=== PATIENT | female | born 1980 ===

== ENCOUNTER 2024-09-20 14:07 | Outpatient (AMB) | payer OTHER, SELFPAY ==
--- NOTE | 2024-09-20 14:14 | MHC.PC.OV ---
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 Intake Note: New patient visit Trial Attorney Required: No Allergies No Known Allergies Allergy (Verified 09/20/24 14:15) Medication List - Last Reconciled 09/20/24 by Vanesa Magallanes PA-C No Known Home Meds Tobacco use date assessed: 09/20/24 Dental Screening Dental Screen Date: 09/20/24 Did you have a dental visit in the last 12 months?: Yes Did you have a dental problem in the last 6 months where you did not have access to dental care?: No Was dental information given to patient?: Patient declined (sees on in [place]) HPI 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 She is transferring from [place]. Has a hx SARI Trial Attorney: Josefa [phone] --patient does speak and understand most [place]ib[place]ian. 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 States that she recently had a review and was told that she does have some concentration issues. She tells me today that she does not really have depression or anxiety but wonders if she has underlying ADD. She is wondering about seeing a psychiatrist and treating this. She does complain today of fatigue for the last couple of months. She is not sure if it is related to her difficulty concentrating or her history of iron-deficiency anemia. Not on any supplements. She has also been experiencing bilateral carpal tunnel syndrome for the last couple years. She has been wearing splints at night but recently it seems like the splints are not as effective. She is waking up with numbness and tingling and pain in her hands. She does endorse low back pain that is been on and off for years. It is more chronic now. There was no trauma. No radiation down the legs. Mill Dresser: UTD, follows in [place] Mammo: Had this ordered by her camera repairer. Family hx: Maternal grandmother breast ca, 2 maternal aunts have breast cancer. Paternal aunt age 47 colon cancer, paternal uncle has thyroid and prostate ca [facility] Surgical History (Updated 09/20/24 @ 14:26 by Kathrine Yan CMA) H/O breast augmentation Family History (Updated 09/20/24 @ 14:24 by Kathrine Yan CMA) Mother Bipolar 1 disorder Diabetes Arthritis Paternal Aunt Colon cancer high risk Maternal Grandmother Breast cancer Paternal Grandmother Breast cancer Father Arthritis Social History Housing: House Patient Tobacco Use Status: Never used Tobacco e-Cigarette/Vaping Use: Never Used Second Hand Smoke Exposure: No service: No Current occupational status: employed 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 1. Little interest or pleasure in doing things: several days 2. Feeling down, depressed, or hopeless: not at all 3. Trouble falling or staying asleep, or sleeping too much: several days 4. Feeling tired or having little energy: several days 5. Poor appetite or overeating: not at all 6. Feeling bad about yourself - or that you are a failure or have let yourself or your family down: not at all 7. Trouble concentrating on things, such as reading the newspaper or watching television: more than half the days 8. Moving or speaking so slowly that other people could have noticed. Or the opposite - being so fidgety or restless that you have been moving around a lot more than usual: not at all 9. Thoughts that you would be better off or of hurting yourself in some way: not at all Total score: 5 Depression Screening Interpretation: Positive Depression Screening Follow-up: Existing condition, New Medication prescribed, Community Mental Health Worker F/U and Follow-up Visit Requested Depression Screening Done: Yes 43859 - PHQ-9 Billing: Yes Source: Developed by Drs. Mitchel Arana, Nusrat San, Nemesio Long and colleagues, with an educational herminia from [employer]. Thrive Questionnaire Date Thrive assessed: 08/21/24 I am a: Patient What is your living situation today?: I have a steady place to live Within the past 12 months, did the food you bought not last and you didn't have the money to get more?: Never true Within the past 12 months, did you worry whether your food would run out before you got money to buy more?: Never true Do you have trouble paying for medicines?: No Do you have trouble getting transportation to medical appointments?: No Do you have trouble paying your heating and electricity bill?: I choose not to answer this question Do you have trouble taking care of your child, family member or friend?: No Do you have trouble with day-to-day activities such as bathing, preparing meals, shopping, managing finances, etc.?: No Are you currently unemployed and looking for a job?: No Are you interested in more education?: I choose not to answer this question Please select the resources that you would like help with: None Currently or been in a relationship where the following occur: No concerns reported THRIVE Score: 0 AUDIT C Alcohol Use Questionnaire (AUDIT-C) 2. How many drinks containing alcohol do you have on a typical day when you are drinking?: 1 or 2 Total Score: 0 Score Reviewed/Action Taken: Yes SHANNON-7 AMB Questionnaire SHANNON-7 Feeling nervous, anxious, or on edge: 1 = Several days Not being able to stop or control worryin = Several days Worrying too much about different things: 1 = Several days Trouble relaxin = Several days Being so restless that it is hard to sit still: 2 = More than half the days Becoming easily annoyed or irritable: 0 = Not at all Feeling afraid as if something awful might happen: 0 = Not at all Total SHANNON-7 score (0-4 normal; 5-9 mild; 10-14 moderate; 15-21 severe): 6 Source: Developed by Drs. Mitchel Arana, Nusrat San, Nemesio Long and colleagues, with an educational herminia from [employer]. SHANNON-7 Assessment Billing SHANNON-7 Assessment Tool: SHANNON-7 Assessment 35626 Physical exam (Primary Care) PHQ-9: PHQ-9 Score PHQ-9: Total score 5 09/20/24 14:16 Depression Screening Interpretation: Positive Depression Screening Follow-up: Existing condition, New Medication prescribed, Community Mental Health Worker F/U and Follow-up Visit Requested Thrive Assessment: Date of Thrive Assessment Date Thrive assessed 08/21/24 09/20/24 14:16 Currently or been in a relationship where the following occur: No concerns reported Const Orientation/consciousness: patient oriented x3 HENMT Ears: hearing grossly normal bilaterally Neck Thyroid: Thyroid normal Lymphatic: no lymphadenopathy noted Resp Auscultation: clear to auscultation bilaterally Cardio Rate: regular rate Rhythm: regular rhythm Heart sounds: S1 normal heart sound present and S2 normal heart sound present GI Inspection: Yes normal to inspection Palpation (GI): Soft to palpation and Other GI palpation findings present (nontender, no cva tenderness) Auscultation: normoactive bowel sounds Rectal Exam - Female: deferred Skin General skin exam: no rashes or lesions noted Neuro General: patient oriented x3, gait normal and no focal motor deficits Coding Level of Care Code New Pt Level 4 (27065) Complex EM visit Add On G2211 Diagnoses SARI (iron deficiency anemia) D50.9 Bilateral carpal tunnel syndrome G56.03 Lumbar pain M54.50 Difficulty concentrating R41.840 Fatigue R53.83 Family history of breast cancer Z80.3 Additional Codes PHQ-9 - 75634 - PHQ-9 Billing: Yes ([id number]) SHANNON-7 Assessment Billing - SHANNON-7 Assessment Tool: SHANNON-7 Assessment [id number] ([id number]) Assessment & Plan Assessment & Plan (1) SARI (iron deficiency anemia): Code(s): D50.9 - Iron deficiency anemia, unspecified Category: Medical Plan: Labs ordered today. We will follow up pending test results (2) Bilateral carpal tunnel syndrome: Code(s): G56.03 - Carpal tunnel syndrome, bilateral upper limbs Category: Medical Plan: Referral to ortho (3) Lumbar pain: Code(s): M54.50 - Low back pain, unspecified Category: Medical Plan: X-ray ordered (4) Difficulty concentrating: Code(s): R41.840 - Attention and concentration deficit Category: Medical Plan: We will try Wellbutrin. Discussed risks and benefits and adverse effects of this medication. (5) Fatigue: Code(s): R53.83 - Other fatigue Category: Medical Plan: As above. Labs ordered. (6) Family history of breast cancer: Code(s): Z80.3 - Family history of malignant neoplasm of breast Category: Medical Plan: Referral to genetic counseling. Orders: Orders Vitamin B12 and Folate Today D50.9 - Iron deficiency anemia, unspecified, G56.03 - Carpal tunnel syndrome, bilateral upper limbs, M54.50 - Low back pain, unspecified, R41.840 - Attention and concentration deficit, R53.83 - Other fatigue TSH reflex Free T4 Today D50.9 - Iron deficiency anemia, unspecified, G56.03 - Carpal tunnel syndrome, bilateral upper limbs, M54.50 - Low back pain, unspecified, R41.840 - Attention and concentration deficit, R53.83 - Other fatigue UA CC w/rflx Micro + Cult Today D50.9 - Iron deficiency anemia, unspecified, G56.03 - Carpal tunnel syndrome, bilateral upper limbs, M54.50 - Low back pain, unspecified, R41.840 - Attention and concentration deficit, R53.83 - Other fatigue, Z13.220 - Encounter for screening for lipoid disorders Magnesium Today D50.9 - Iron deficiency anemia, unspecified, G56.03 - Carpal tunnel syndrome, bilateral upper limbs, M54.50 - Low back pain, unspecified, R41.840 - Attention and concentration deficit, R53.83 - Other fatigue Erythrocyte Sedimentation Rate Today D50.9 - Iron deficiency anemia, unspecified, G56.03 - Carpal tunnel syndrome, bilateral upper limbs, M54.50 - Low back pain, unspecified, R41.840 - Attention and concentration deficit, R53.83 - Other fatigue TASHIA Reflex Titer and Pattern Today D50.9 - Iron deficiency anemia, unspecified, G56.03 - Carpal tunnel syndrome, bilateral upper limbs, M54.50 - Low back pain, unspecified, R41.840 - Attention and concentration deficit, R53.83 - Other fatigue Rheumatoid Factor Today D50.9 - Iron deficiency anemia, unspecified, G56.03 - Carpal tunnel syndrome, bilateral upper limbs, M54.50 - Low back pain, unspecified, R41.840 - Attention and concentration deficit, R53.83 - Other fatigue Lipid Panel Today D50.9 - Iron deficiency anemia, unspecified, G56.03 - Carpal tunnel syndrome, bilateral upper limbs, M54.50 - Low back pain, unspecified, R41.840 - Attention and concentration deficit, R53.83 - Other fatigue Complete Blood Count Auto Diff Today D50.9 - Iron deficiency anemia, unspecified, G56.03 - Carpal tunnel syndrome, bilateral upper limbs, M54.50 - Low back pain, unspecified, R41.840 - Attention and concentration deficit, R53.83 - Other fatigue Ferritin Today D50.9 - Iron deficiency anemia, unspecified, G56.03 - Carpal tunnel syndrome, bilateral upper limbs, M54.50 - Low back pain, unspecified, R41.840 - Attention and concentration deficit, R53.83 - Other fatigue IRON PROFILE Today D50.9 - Iron deficiency anemia, unspecified, G56.03 - Carpal tunnel syndrome, bilateral upper limbs, M54.50 - Low back pain, unspecified, R41.840 - Attention and concentration deficit, R53.83 - Other fatigue Comprehensive Leopold. Panel Fast Today D50.9 - Iron deficiency anemia, unspecified, G56.03 - Carpal tunnel syndrome, bilateral upper limbs, M54.50 - Low back pain, unspecified, R41.840 - Attention and concentration deficit, R53.83 - Other fatigue XR lumbar spine 2-3V Today M54.50 - Low back pain, unspecified Referrals Genetics Referral Z80.3 - Family history of malignant neoplasm of breast Orthopedics Referral G56.03 - Carpal tunnel syndrome, bilateral upper limbs, M54.50 - Low back pain, unspecified Psychiatry Referral R41.840 - Attention and concentration deficit Medications: New bupropion HCl XL (Wellbutrin XL) 150 mg PO QAM 90 tabs 0RF
[2024-09-20 14:26] VITALS: BP 90/66; PULSE 83; RESP 12; O2SAT 99; BMI 27.0
== END 2024-09-20 14:54 | disposition home or self-care (01) ==
PROVIDERS: PCP Physician Assistant; Visit Provider Physician Assistant
DX: D50.9 Iron deficiency anemia, unspecified (principal); G56.03 Carpal tunnel syndrome, bilateral upper limbs; M54.50 Low back pain, unspecified; R41.840 Attention and concentration deficit; R53.83 Other fatigue; Z80.3 Family history of malignant neoplasm of breast

== ENCOUNTER → 2024-09-20 14:07 | Outpatient (BNVA) | payer OTHER, SELFPAY | PROVIDERS: PCP Physician Assistant; Visit Provider Physician Assistant | DX: D50.9 Iron deficiency anemia, unspecified (principal); G56.03 Carpal tunnel syndrome, bilateral upper limbs; M54.50 Low back pain, unspecified; R41.840 Attention and concentration deficit; R53.83 Other fatigue; Z80.3 Family history of malignant neoplasm of breast | CPT/HCPCS: 96127 ==

== ENCOUNTER 2024-09-21 13:44 | Outpatient (REF) | payer OTHER, SELFPAY ==
--- OUTSIDE RECORDS SUMMARY | 2024-09-21 16:42 | XMS_ITS | Data Portability ---
Author Organization [place] - [facility], [facility] Address [address] [place] [address] Assessment No assessment recorded. Plan of Treatment Reminders Order Date Submit Date Provider Last Modified By Organization Details Last Modified Time Details Appointments None recorded. Lab pap, IG + HPV 2023 [email or web address] 8 [facility], [address] [place] [address], 4 08:31:00 HIV 1+2 AB + HIV 1 p24 Ag, qualitative immunoassay , serum 2023 [email or web address] 8 [facility], [address] [place] [address], 4 08:31:00 HBsAg (hepatitis B surface Ag), confirmatio n, serum 2023 [id number] 8 [facility], [address] [place] [address], 4 08:31:00 hepatitis C Ab, serum 2023 [email or web address] 8 [facility], [address] [place] [address], 4 08:31:00 RPR (rapid plasma reagin), serum 2023 8 [facility], [address] [place] [address], 4 08:31:00 hsv (1+2) igg Ab, serum 2023 [email or web address] 8 [facility], [address] [place] [address], 4 08:31:00 bacterial vaginosis + vaginitis panel, vaginal 2023 ZOE [facility], [address] [place], [address] 11:14:03 Referral None recorded. Procedures None recorded. Surgeries None recorded. Imaging MAMMO, screening, digital, bilateral, w/ CAD 2023 [email or web address] 8 [facility], [address] [facility], [place], [address], 08:31:09 Medication Orders None recorded. Patient TargetsNo targets recorded. Patient Instructions Encounter Date Encounter Id Patient Instructions Last Modified By Organization Details Last Modified Time 04/27/2024 [id number] mammogram: about this test Not available 04/27/2024 10:44:02 tips to help you stay healthy Not available 04/27/2024 10:42:51 Normal pelvic exam Except possible small RLUS fibroid Check pelvic USN PAP/HPV sent BSE reviewed MGM due Menses q 24-26 days Contraception: Condoms Complete STD screen Declines Gardasil RTC annual/prn Not available 04/27/2024 11:50:44 Reason for Referral None Reported. Results Created Date Observation Date Name Description Value Unit Range Abnormal Flag Note LastModifiedBy Organization Detail LastModifiedTime 04/27/2004/27/2024 ADVAN ELYSE BACTE RIAL VAGIN OSIS (BV), TMA adv bacterial vaginosis (bv), tma Positi ve negati ve abnormal Not Available [facility] [address] [place], [address] 04/28/2024 11:14:03 04/27/2004/27/2024 ADVAN ELYSE RAFAEL DA VAGIN ITIS (CV)/ TRICH OMONA S VAGIN EDITH (TV), TMA maddy species Negati ve negati ve Not Available [facility] [address] [place], [address] 04/28/2024 11:14:04 04/27/20 24 04/27/2024 ADVAN ELYSE RAFAEL DA VAGIN ITIS (CV)/ TRICH OMONA S VAGIN EDITH (TV), TMA maddy glabrata Negati ve negati ve Not Available [facility] [address] [place], [address] 04/28/2024 11:14:04 04/27/2004/27/2024 ADVAN ELYSE RAFAEL DA VAGIN ITIS (CV)/ TRICH OMONA S VAGIN EDITH (TV), TMA trichomonas vaginalis (TV), tma Negati ve negati ve Not Available [facility] [address] [place], [address] 04/28/2024 11:14:04 04/27/2004/27/2024 CHLAM YDIA/ GONOR RHOEA E RNA, TMA neisseria gonorrhoeae RNA, tma Negati ve negati ve The perfo rmanc e of endoc ervic al, vagin al, and male ureth ral swab speci mens, male and femal e urine speci mens, and Prese rvCyt Solut ion liqui d Pap speci mens has not been evalu ated in adole scent s less than 16 years of age. Not Available [facility] [address] [place] [address], [id number] 04/28/2024 11:14:04 04/27/2004/27/2024 CHLAM YDIA/ GONOR RHOEA E RNA, TMA chlamydia trachomatis RNA, tma Negati ve negati ve The perfo rmanc e of endoc ervic al, vagin al, and male ureth ral swab speci mens, male and femal e urine speci mens, and Prese rvCyt Solut ion liqui d Pap speci mens has not been evalu ated in adole scent s less than 16 years of age. Not Available [facility] [address] [place] [address], [id number] 04/28/2024 11:14:04 04/27/2004/27/2024 HPV MRNA E6/E7 HPV MRNA E6/E7 Negati ve negati ve APTIM A HPV assay detec ts 14 high risk HPV types (HPV 16,18 ,31,3 3,35, 39,45 ,51,5 2,56, 58,59 ,66,6 8). The assay is FDA appro callum for testi ng ThinP rep liqui d Pap vials but not FDA appro callum for detec ting HPV in SureP ath liqui d Pap speci mens. In-ho use valid ation has shown the assay can detec t all HPV types from this sour e Not Available [facility] [address] [place], [address] 05/04/2024 12:52:42 04/27/2004/27/2024 THINP REP PAP TEST (IMAG ER), HPV SCREE N, REFLE X HPV 16,18 /45 report Report Final Gynec ologi enid Cytol ogy Repor t ----- ----- ----- ----- ----- ----- ----- ----- ----- ----- ----- ----- ThinP rep Pap Test, HPV Scree n, Refle x HPV Genot ype SPECI MEN ADEQU ACY: SATIS FACTO RY FOR EVALU ATION ; ENDOC ERVIC AL/TR ANSFO RMATI ON ZONE COMPO NENT PRESE NT. INTER PRETA TION: NEGAT SERG FOR INTRA EPITH JEFFERY Daly OR NATHANIEL SHELDON . Elect milan Gibson d: Pros[place], [place] (ASCP ) ----- ----- ----- ----- ----- ----- ----- ----- ----- ----- ----- ----- CLINI ENID INFOR ROBIN N: LMP: NG Clini enid Histo ry: NG Biops y Date: NG Speci men Sourc e: Cervi x, Endoc ervix Previ ous Pap Date: NG HPV RESUL TS: HPV mRNA E6/E7 [id number] Appro callum: 04/28 Negat serg REF RANGE : Negat serg CPT Codes : 90712 ICD Codes : Z01.4 19 Not Available [facility] [address] [place], [address] 05/04/2024 12:52:46 Result Notes None recorded. Problems No Known Problems Procedures Surgical History Date Name Laterality Status Provider Name and Address Organization Details Recorded Time 04/27/20 Date of Last Pap Smear completed DONALDO WILBURN MD [address] [facility] [facility], [place], [address], [facility] 04/27/2024 10:54:19 07/19/19 18 Breast augmentation w/implt completed DONALDO WILBURN MD [address] [facility], [address] [facility], [place], [address], [facility] 04/27/2024 10:58:02 Imaging Results None recorded. Procedure Notes None recorded. Medical Equipment None Reported. Allergies No known drug allergies Medications Name Sig Start Date Stop Date Status Note LastModified by Organization Details LastModified Time metronidazole 500 mg tablet TAKE 1 TABLET BY MOUTH EVERY 8 HOURS DIRECTED FOR 7 DAYS active Not Available Not Available No t Available Vitals Date Recorded Body height Body mass index (BMI) Body weight Systolic blood pressure Diastolic blood pressure Provider Name and Address Organization Details Last Updated DateTime 04/27/2024 147.32 cm 25.9 kg/m2 80181.45 g 106 mm[Hg] 72 mm[Hg] Yolanda Mcd[facility] 10:19:04 Social History None recorded. Functional Status None recorded. Mental Status None recorded. Family History Relationship Description Onset Age of this Age Resolved Age Notes LastModified by Organization Details LastModified Time Paternal Aunt Malignant tumor of colon 39 Not available 2023 10:54:57 Paternal Grandmother Malignant tumor of breast 75 Not available 2023 10:55:14 Paternal Uncle Malignant tumor of thyroid gland 50 Not available 2023 10:55:41 Paternal Uncle Malignant tumor of prostate 50 Not available 2023 10:55:58 Medical History No medical history recorded. Gynecological History Statement/Question Response Current Control Method Condoms Date of Last Pap Smear 04/27/2024 Date of LMP 04/04/2024 IPV Screen Done 04/27/2024 Obstetrics History GPAL:G 0 P 0 0 0 0 Past Encounters Encounter ID Performer Location Encounter Start Date Encounter Closed Date Diagnosis/Indication Diagnosis SNOMED-CT Code Diagnosis ICD10 Code Diagnosis Note [id number] DONALDO WILBURN MD [address] [place] [address] [address] [place] [address] 04/27/2024 10:11:02 04/27/2024 10:56:30 Gynecologic examination 17884741 Z01.419 Venereal d isease screening 968996086 Z11.3 Screening mammography 24 301214 Z12.31 Health Concerns Section Related Observation LastModified by Organization Detai ls LastModified Time None Recorded Concern Status LastModified by Organization Details LastModified Time None Recorded Advance Directives Directive None Recorded Payers Encounter Date Sequence Insurance Name Policy Number Policy Hong Covered Member ID Hong Member ID Guarantor Name 04/27/2024 1 [place] [id number] Aristides Jeffersron [id number] Rolfenaris Nelson Notes Date Note Type Note Provider Name and Address Organization Details Recorded Time 04/27/2024 text/html [facility] Annual GYNReported bypatient.History: no gynecologic complaints Menstrual cycle:Normal menses Urinary symptoms:No hematuria; No incontinence Vulva:No genital lesion Vagina:Normal vaginal discharge Breast:No breast pain; No breast lump; No nipple discharge Current Contraception:Sati sfied with current contraception; Condoms Sexual activity:sexually active yes ; No sexual complaints; No pain during intercourse; Normal libido Menopausal symptoms:No menopausal symptoms; Normal vaginal lubrication Psychological symptoms:No depression; No anxiety; No PMDD Moved here for [place] 6 years ago. No exam for that many years.No hx of abnormal PAP or PID. Did have a baseline MGM at 37 yo prior to breast augmentation. Tried oral BCP once and did not feel well. Has only used condoms since. Desires STD test DONALDO WILBURN MD [address] [place] [address], [address], [place], [address], [place] [facility] 04/27/2024 11:51:13 OBGyn Episode No OBEpisode recorded.
[2024-09-21 17:47] LABS: MANUAL DIFF FLAG NO
[2024-09-21 18:01] LABS: Basophils Percent Auto 0.5 % (0-2); Eosinophils Absolute Auto 0.1 X10*3/uL (0.0-0.4); Eosinophils Percent Auto 1.9 % (0-4); Hematocrit 38.9 % (37.0-47.0); Hemoglobin 12.5 g/dl (12.0-16.0); Imm Gran Abs Auto 0.01 X10*3/uL (0.00-0.03); Imm Gran Pct Auto 0.2 % (0.0-0.4); Lymphocytes Absolute Auto 1.3 X10*3/uL (1.2-4.9); Lymphocytes Percent Auto 20.9 % (20-40); Mean Corpuscular HGB Conc 32.1 g/dl (31.0-35.0); Mean Corpuscular Hemoglobin 28.5 pg (27.0-33.0); Mean Corpuscular Volume 88.6 fL (80.0-98.0); Mean Platelet Volume 10.5 fL (9.4-12.3); Monocytes Absolute Auto 1.1 X10*3/uL (0.1-1.2); Monocytes Percent Auto 17.7 % (2-11); Neutrophils Absolute Auto 3.8 x10*3/uL (2.0-8.3); Neutrophils Percent Auto 58.8 % (45-73); Platelet Count 196 X10*3/uL (160-400); Red Blood Count 4.39 X10*6/uL (4.20-5.50); White Blood Count 6.4 X10*3/uL (4.8-10.8)
[2024-09-21 18:13] LABS: Appearance Urine Clear; Color Urine Dark Yellow; Glucose Urine UA Negative (Negative); Leukocyte Esterase Urine Trace (Negative); Nitrite Urine Negative (Negative); Specific Gravity - Urine 1.025 (1.005-1.025); UMIC TRIGGER UACC YES; Urine Blood Small (1+) (Negative); Urine Ketones Negative (Negative); Urine Protein Negative (Neg-Trace)
[2024-09-21 18:33] LABS: Bacteria Urine 1+ (None Seen); Hyaline Casts Urine 0-2 /LPF (0-2); RBC Urine 0-2 /HPF (0-2); Squamous Epithelial Cell Urine 0-2 /HPF (0-2); UACC Culture Trigger YES
[2024-09-21 18:42] LABS: Rheumatoid Factor < 13.0 IU/mL (<15.0)
[2024-09-21 19:09] LABS: Vitamin B12 517 pg/mL (200-900)
[2024-09-21 19:20] LABS: Alanine Aminotransferase 11 U/L (0-31); Albumin Level 3.8 g/dL (3.5-5.0); Alkaline Phosphatase 40 U/L (39-117); Anion Gap 11 (12-20); Aspartate Amino Transferase 17 U/L (5-31); Bilirubin Total 0.2 mg/dL (0.0-1.0); Blood Urea Nitrogen 9 mg/dL (9-16); Calcium 8.2 mg/dL (8.4-10.2); Carbon Dioxide 22 mmol/L (22-29); Chloride 109 mmol/L (96-108); Cholesterol 134 mg/dL (<200); Estimated Glomerular Filt Rate > 60; Glucose Fasting 80 mg/dL (60-99); HDL Cholesterol 44 mg/dL (>40); Iron 19 mcg/dL (30-160); LDL Cholesterol Calculated 79 mg/dL (<100); Percent Iron Saturation 6 % (15-50); Potassium 4.4 mmol/L (3.3-5.1); Sodium 138 mmol/L (135-145); Total Iron Binding Capacity 311 mcg/dL (228-428); Total Protein 6.9 g/dL (6.5-8.0); Triglycerides 59 mg/dL (<150); Unsaturated Iron Binding 292 ug/dL
[2024-09-21 19:25] LABS: Erythrocyte Sedimentation Rate 11 MM/HR (0-20)
[2024-09-21 19:34] LABS: Ferritin 17 ng/mL (10-250); TSH reflex Free T4 1.47 uIU/mL (0.32-4.0)
[2024-09-26 13:08] LABS: Anti Nuclear Antibody Screen NEGATIVE (NEGATIVE)
== END 2024-09-21 13:45 | disposition home or self-care (01) ==
LOC: HO.WFDLDS 13:44
PROVIDERS: Visit Provider Physician Assistant
DX: D50.9 Iron deficiency anemia, unspecified (principal); G56.03 Carpal tunnel syndrome, bilateral upper limbs; M54.50 Low back pain, unspecified; R41.840 Attention and concentration deficit; R53.83 Other fatigue; Z13.6 Encounter for screening for cardiovascular disorders
CPT/HCPCS: 36415; 80053; 80061; 81001; 82607; 82728; 82746; 83540; 83735; 84443; 85025; 85652; 86038; 86431; 87086; 87088; 87186

== ENCOUNTER 2024-10-18 13:51 | Outpatient (AMB) | payer OTHER, SELFPAY ==
--- NOTE | 2024-10-18 14:10 | MHC.PC.OV ---
Vital Signs 10/18/24 14:22 Height 4 ft 9.76 in Weight 124 lb 8 oz BMI 26.2 BP 90/62 Blood Pressure Location Rt brachial Position Sitting Respiration 12 Pulse 89 Pulse Source Pulse Oximeter Pulse Oximetry (%) 99 Oxygen Delivery Method Room Air Intake Visit Reasons: f/u medication Intake Note: Follow up medication, lab results. Internal Corrosion Specialist Required: No Internal Corrosion Specialist Name: pediatric sports medicine specialist declined Allergies No Known Allergies Allergy (Verified 10/18/24 14:20) Medication List - Last Reconciled 10/18/24 by Vanesa Magallanes PA-C bupropion HCl XL (Wellbutrin XL) 150 mg PO QAM Tobacco use date assessed: 10/18/24 Dental Screening Dental Screen Date: 09/20/24 HPI f/u medication HPI Details Patient is a 43-year-old female who presents today for a follow up. She is transferring from [place]. Has a hx SARI Psych: Recently saw Psychiatry and was started on Strattera in addition to the Wellbutrin to see if that would help with her ADD. She states that it has helped with motivation but it has not helped with concentration. She does feel that her anxiety is under better control as well. She works at [employer] has a counselor. She tells me today that she does not really have depression or anxiety but wonders if she has underlying ADD. 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 She states that she has heavy/normal periods for 3 days and then it is very light and does not last usually more than 4 days in total. She does follow with gynecology . Linotype Operator: [facility], follows in [place] Mammo: Had this ordered by her licensed dispensing optician. Family hx: Maternal grandmother breast ca, 2 maternal aunts have breast cancer. Paternal aunt age 47 colon cancer, paternal uncle has thyroid and prostate ca -she was referred to Genetics [facility] Surgical History (Updated 09/20/24 @ 14:26 by Kathrine Yan CMA) H/O breast augmentation Family History (Updated 10/18/24 @ 14:22 by Kathrine Yan CMA) Mother Bipolar 1 disorder Diabetes Arthritis Paternal Aunt Colon cancer high risk Maternal Grandmother Breast cancer Paternal Grandmother Breast cancer Father Arthritis Other FH: mental illness Social History (Updated 10/18/24 @ 14:22 by Kathrine Yan CMA) Housing: House Alcohol intake: former Patient Tobacco Use Status: Never used Tobacco e-Cigarette/Vaping Use: Never Used Second Hand Smoke Exposure: No service: No Current occupational status: employed 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 Current occupational exposures/hazards: No Cognitive needs: No Hearing needs: No Vision needs: Yes (glasses) Questionnaire Thrive Questionnaire Date Thrive assessed: 08/21/24 I am a: Patient What is your living situation today?: I have a steady place to live Within the past 12 months, did the food you bought not last and you didn't have the money to get more?: Never true Within the past 12 months, did you worry whether your food would run out before you got money to buy more?: Never true Do you have trouble paying for medicines?: No Do you have trouble getting transportation to medical appointments?: No Do you have trouble paying your heating and electricity bill?: I choose not to answer this question Do you have trouble taking care of your child, family member or friend?: No Do you have trouble with day-to-day activities such as bathing, preparing meals, shopping, managing finances, etc.?: No Are you currently unemployed and looking for a job?: No Are you interested in more education?: I choose not to answer this question Please select the resources that you would like help with: None Currently or been in a relationship where the following occur: No concerns reported THRIVE Score: 0 Physical exam (Primary Care) Vital Signs: Last Vital Signs Pulse 89 10/18/24 14:22 Resp 12 10/18/24 14:22 BP 90/62 10/18/24 14:22 Pulse Ox 99 10/18/24 14:22 Oxygen Delivery Method Room Air 10/18/24 14:22 BMI result Body Mass Index 26.2 Tobacco/Smoking Status: Tobacco use Status Tobacco use date assessed 10/18/24 10/18/24 14:26 Patient Tobacco Use Status Never used Tobacco 10/18/24 14:26 e-Cigarette/Vaping Use Never Used 10/18/24 14:22 Thrive Assessment: Date of Thrive Assessment Date Thrive assessed 08/21/24 10/18/24 14:10 Currently or been in a relationship where the following occur: No concerns reported Const Orientation/consciousness: patient oriented x3 HENMT Ears: hearing grossly normal bilaterally Neck Thyroid: Thyroid normal Lymphatic: no lymphadenopathy noted Resp Auscultation: clear to auscultation bilaterally Cardio Rate: regular rate Rhythm: regular rhythm Heart sounds: S1 normal heart sound present and S2 normal heart sound present GI Inspection: Yes normal to inspection Palpation (GI): Soft to palpation and Other GI palpation findings present (nontender, no cva tenderness) Auscultation: normoactive bowel sounds Rectal Exam - Female: deferred Skin General skin exam: no rashes or lesions noted Neuro General: patient oriented x3, gait normal and no focal motor deficits Results Reviewed Results Reviewed: Laboratory Tests 09/21/24 13:47 WBC 6.4 RBC 4.39 Hgb 12.5 Hct 38.9 Plt Count 196 Sodium 138 Potassium 4.4 Chloride 109 H Carbon Dioxide 22 Anion Gap 11 L BUN 9 Creatinine 0.69 Estimated GFR > 60 Fasting Glucose 80 Calcium 8.2 L Magnesium 2.0 Iron 19 L TIBC 311 % Saturation 6 L Unsat Iron Binding 292 Ferritin 17 Total Bilirubin 0.2 AST 17 ALT 11 Alkaline Phosphatase 40 Total Protein 6.9 Albumin 3.8 Triglycerides 59 Cholesterol 134 LDL Cholesterol, Calc 79 HDL Cholesterol 44 Vitamin B12 517 Folate 6.0 TSH 1.47 Coding Level of Care Code Est Pt Level 4 (99608) Complex EM visit Add On G2211 Diagnoses Difficulty concentrating R41.840 Family history of breast cancer Z80.3 SARI (iron deficiency anemia) D50.9 Assessment & Plan Assessment & Plan (1) Difficulty concentrating: Code(s): R41.840 - Attention and concentration deficit Category: Medical Plan: Following with Psychiatry. Feeling some what of improvement. (2) Family history of breast cancer: Code(s): Z80.3 - Family history of malignant neoplasm of breast Category: Medical Plan: She was referred at our last visit to Genetics. Mammogram was ordered (3) SARI (iron deficiency anemia): Code(s): D50.9 - Iron deficiency anemia, unspecified Category: Medical Plan: Start on iron supplement. We will check labs in a couple weeks. Medications: New atomoxetine (Strattera) 40 mg PO QAM 30 caps 0RF ferrous sulfate 324 mg PO DAILY 90 tabs 0RF
[2024-10-18 14:22] VITALS: BP 90/62; PULSE 89; RESP 12; O2SAT 99; BMI 26.2
--- OUTSIDE RECORDS SUMMARY | 2024-10-18 16:34 | XMS_ITS ---
Author Name [facility] Organization Unknown Encounters Encounter Type Encounter Reason Primary Diagnosis Location Date Ambulatory no current diagnosis no current diagnosis [facility] 04/27/2024 Care Team Organization Name Specialty Phone Email Start Date End Da te [facility] 04/29/2024 [facility] 04/27/2024
== END 2024-10-18 14:51 | disposition home or self-care (01) ==
LOC: HO.HMCFM 13:52
PROVIDERS: PCP Physician Assistant; Visit Provider Physician Assistant
DX: R41.840 Attention and concentration deficit (principal); Z80.3 Family history of malignant neoplasm of breast; D50.9 Iron deficiency anemia, unspecified